=== PATIENT | male | born 1935 | race Native Hawaiian/Other Pacific Islander ===

== ENCOUNTER 2019-11-04 10:16 | Outpatient (CLI) | payer OTHER, BC ==
[2019-11-04 10:46] LABS: PLATELET COUNT 330 K/uL (142-355)
[2019-11-04 10:55] LABS: POTASSIUM 3.7 mmol/L (3.6-5.2)
== END 2019-11-04 19:09 | disposition home or self-care (01) ==
LOC: LAB 10:16
PROVIDERS: Internal Medicine
DX: K85.10 Biliary acute pancreatitis without necrosis or infection (principal); K81.0 Acute cholecystitis; R79.89 Other specified abnormal findings of blood chemistry
CPT/HCPCS: 80053; 82150; 83690; 85027

== ENCOUNTER 2020-06-14 10:31 | Outpatient (CLI) | payer OTHER, BC | END 2020-06-14 19:32 | disposition home or self-care (01) | LOC: LABW 10:31 | PROVIDERS: ATTEND Nurse Practitioner | DX: I25.10 Atherosclerotic heart disease of native coronary artery without angina pectoris (principal); E78.2 Mixed hyperlipidemia | CPT/HCPCS: 36415; 80061; 80076 ==

== ENCOUNTER 2020-06-21 13:53 | Emergency (ER) | payer OTHER, BC ==
[~2020-06-21] VITALS: Ht 180.3 cm; Wt 88.9 kg
[2020-06-21 16:15] VITALS: BP 138/78; TEMP 98.7
== END 2020-06-21 16:15 | disposition home or self-care (01) ==
LOC: ED 13:53
DX: S00.03XA Contusion of scalp, initial encounter (principal); W18.39XA Other fall on same level, initial encounter; Y93.89 Activity, other specified; Y92.014 Private driveway to single-family (private) house as the place of occurrence of the external cause
CPT/HCPCS: 99283; J7040